=== PATIENT | male | born 1940 | race Hispanic/Latino ===

== ENCOUNTER 2023-08-29 16:22 | Emergency (ER) | payer SELFPAY ==
[~2023-08-29] VITALS: Ht 160 cm; Wt 60.0 kg
[2023-08-29] MEDS ORDERED: SODIUM CHLORIDE 0.9% 1,000 ML IV ONE (20:10)
[2023-08-29] MEDS ORDERED: ONDANSETRON HCl 4 MG/2 ML SDV IV ONE (20:15)
[2023-08-29] MEDS ORDERED: Pantoprazole Sodium 40 MG VIAL (Protonix) IV ONE (20:15)
[2023-08-29 20:31] LABS: BASO% 0.3 % (0-3); EOS% 0.8 % (0-8); HEMATOCRIT 45.7 % (39.0-50.0); HEMOGLOBIN 14.5 g/dl (14.0-18.0); IMMATURE GRANULOCYTES 0.4 % (0.0-5.0); LYMPH% 17.2 % (15-41); MEAN CELL VOLUME 99.1 fL CALC (80.0-100.0); MEAN CORPUSCULAR HGB 31.5 pG CALC (26.0-32.0); MEAN CORPUSCULAR HGB CONC 31.7 g/dL CAL (32.0-36.0); MONO% 7.9 % (2-13); NEUT# 5.51 thou/uL (1.82-7.42); NEUT% 73.4 % (42-76); RED BLOOD COUNT 4.61 mill/uL (4.70-6.10); RED CELL DISTRI WIDTH 12.4 % (11.5-15.5)
[2023-08-29 20:48] LABS: ALBUMIN 4.5 g/dL (3.2-5.0); ALKALINE PHOSPHATASE 103 u/l (38-126); ANION GAP 11 (6-22 (CALC)); BILIRUBIN, TOTAL 0.5 mg/dL (0.2-1.3); BUN 18 mg/dL (8-23); BUN/CREATININE RATIO 20 (12-20 (CALC)); CARBON DIOXIDE 30 mmol/l (22-30); CHLORIDE 104 mmol/l (95-108); CREATININE 0.9 mg/dL (0.7-1.3); GFR FOR AFR.AMER. > 60 ML/MIN (>=60 (CALC)); GFR OTHER RACES > 60 ML/MIN (>=60 (CALC)); LIPASE 102 u/l (23-300); POTASSIUM 4.2 mmol/l (3.5-5.1); SGOT/AST 34 u/l (19-48); SODIUM 140 mmol/l (137-146); TOTAL PROTEIN 9.2 g/dL (6.3-8.2)
[2023-08-29 21:45] VITALS: BP 137/71
[2023-08-29 22:00] VITALS: BP 137/68
[2023-08-29 22:15] VITALS: BP 142/66
[2023-08-29 22:30] VITALS: BP 122/103
[2023-08-29 23:51] LABS: URINE BILIRUBIN - DIPSTICK Negative (NEGATIVE); URINE BLOOD DIPSTICK Negative (NEGATIVE); URINE GLUCOSE - DIPSTICK Negative (NEGATIVE); URINE KETONE Negative (NEGATIVE); URINE LEUK ESTERASE Negative (NEGATIVE); URINE NITRITE - DIPSTICK Negative (Negative); URINE PH 5.5 (4.5-8.0); URINE PROTEIN - DIPSTICK 30 mg/dL (NEG-TRACE); URINE SPECIFIC GRAVITY 1.025; URINE UROBILINOGEN - DIPSTICK 0.2 E.U./dL (0.2)
[2023-08-29 23:52] LABS: URINE COLOR Yellow
[2023-08-30 00:22] LABS: URINE BACTERIA FEW hpf; URINE SQUAMOUS EPITHELIAL CELL FEW EPI/hpf (0-FEW); URINE WBC 0-2 WBC/hpf (0-5)
[2023-08-30 02:12] VITALS: BP 122/103
[2023-08-30] MEDS ORDERED: PROTONIX40 MG PO (02:22)
[2023-08-30] MEDS ORDERED: BACTRIM DS1 TAB PO (02:38)
== END 2023-08-30 02:53 | disposition home or self-care (01) | DRG 392 ==
LOC: ED 16:22
PROVIDERS: Family Medicine
DX: K29.70 Gastritis, unspecified, without bleeding (principal); I10 Essential (primary) hypertension
CPT/HCPCS: S0164